=== PATIENT | male | born 1960 | race Caucasian/White ===

== ENCOUNTER → 2016-11-12 | Outpatient (CLI) | payer OTHER ==
[~2016-11-12] MED LIST: ANDRODERM; AZIT250T81 PO; BENECAR; CYCL5TAB11 PO; HYDR-3754 PO; LORA10CA PO; METH4TAB27 PO; NAPR550T PO; OLME40TA3 PO; OMEP20CA12 PO; RIZA10TA23 PO; TERA5CAP3 PO; TERB250T10 PO; TESTOSTERONE; TRIA80CR3 TOP; prilosec
[2016-11-12 11:09] VITALS: BP 119/81
--- NOTE | 2016-11-12 11:09 | Urgent Care T Sheet Gen (E) ---
Intake General Temperature (Fahrenheit): 97.5 Pulse: 91 Blood Pressure Systolic: 119 Blood Pressure Diastolic: 81 Respirations: 18 SPO2: 98 Description of Symptoms Patient presents with a rash x 2 days. Patient states it was first noticed as a red, blistering, burning and itching rash between the toes of both feet. Thought is was athlete's foot so started OTC Lotrimin Ultra. No improvement. Yesterday he noticed the same sensation between his fingers. Then a red itchy rash started on both forearms. Rash isn't noticed anywhere else. No one else in the home has the same thing. No new soaps or detergents. No recent travel. Hasn't been outside to be exposed to poison karen. 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 History of Present Illness Allergies: Coded Allergies: No Known Allergies (Verified Allergy, Unknown, 10/06/13) Home Meds Active Scripts Triamcinolone Acetonide (Kenalog 0.1% Cream)80 Gm Cream..g.1 Gm TOP TID #1 TUBE Apply topically to affected area TID until rash is gone Prov:PAUL VELASQUEZ 11/12/16 Terbinafine HCl 250 Mg Iqonik313 Mg PO DAILY #14 TAB Prov:PAUL VELASQUEZ 11/12/16 Azithromycin (Zithromax Z-Jackson)6 Tab/Pkt [id number] Mg PO SEE INSTRUCTIONS #6 TAB Ref 0 Day One: Take 2 tablets by mouth Days Two-Five: Take 1 tablet by mouth Prov:KO SILVER MD 10/06/13 Naproxen Sodium (Anaprox DS)550 Mg Tmxhcb630 Mg PO Q8H #15 Prov:KO SILVER MD 10/06/13 Reported Medications Loratadine (Claritin)10 Mg Pwoecti31 Mg PO DAILY 10/06/13 Rizatriptan Benzoate (Maxalt)10 Mg Oeylni15 Mg PO PRN PRN MIGRAINE 10/06/13 Terazosin HCl 5 Mg Capsule5 Mg PO DAILY 10/06/13 Cyclobenzaprine Hcl (Flexeril)5 Mg Tablet5 Mg PO PRN PRN PAIN 10/06/13 Omeprazole 20 Mg Capsule.dr20 Mg PO DAILY 10/06/13 Olmesartan Medoxomil (Benicar)40 Mg Ojgwjq49 Mg PO DAILY 10/06/13 [anderoderm] No Conflict Check4 Mg DAILY 08/23/12 [prilosec] No Conflict Check 07/02/12 [benecar] No Conflict Check40 Daily 07/02/12 Respiratory Constitutional Symptoms: No syptoms reported EENTM: No symptoms reported Respiratory: No symptoms reported Cardiovascular: No symptoms reported Skin: Rash All Other Systems Reviewed Remaining Systems: All other systems reviewed with negative findings Past Exsuful-Txkbnz-Hdnsyr Hx Surgeries/Hospitalizations Hospitalization/Surgery Hx: Degenerative disc disease. Vasectomy and a reversal Myocarditis 1999. Respiratory Respiratory History: None Comment: hx of pneumonia Cardiovascular Cardiovascular History: Hypertension Comment: myocarditis 2000 Neuro/Muscular Neuro/Muscular History: Back Problems Reproductive System Sexually Transmitted Diseases: No Genitouinary Comment: HX of kidney stones Gastrointestinal GI/Endocrine History: Heartburn Diabetes Diabetes: No HEENT Impaired Vision: None Hearing Impaired: None Cancer History of Cancer?: No Cancer type: none Psychosocial Behavior Disorders: None Physical Exam Physical Exam General Appearance: WD/WN No apparent distress Skin Exam: Rash (examination of the feet reveals red, moist skin between all toes. nothing else is noted on the feet, plantar or dorsal aspect. skin is slightly swollen between the toes. examination of the hands reveals slight rash between the fingers. examination of the forearm reveals a red, maculopapular rash in all planes. rash is blanchable. not oozing or moist. is also seen along the antecubital fossae) Departure Urgent Care Impression Impression: Primary Impression: Rash Departure Disposition: 01 HOME OR SELF-CARE Condition: Stable Referrals: JUAN CHAWLA MD (PCP) Additional Instructions: The patient's rash has a very non specific look. The area between his toes looks more like tinea pedis however the rash on his arms looks more like dermatitis, possibly due to allergy to some sort of wood working product. Since I'm not 100% sure on the etiology, I opted to treat both. I have started him on Terbinafine for possible tinea pedis. I have also prescribed Triamcinolone ointment for the rash on his arm. Hoping one of the two meds will alleviate his symptoms. F/U with PCP if no better Reassured patient is isn't shingles or anything concerning like that (rash is on both sides of body) Patient understands DC instructions. All questions were answered. Scripts Triamcinolone Acetonide (Kenalog 0.1% Cream)80 Gm Cream..g.1 Gm TOP TID #1 TUBE Apply topically to affected area TID until rash is gone Prov:PAUL VELASQUEZ 11/12/16 Terbinafine HCl 250 Mg Kjrqjh675 Mg PO DAILY #14 TAB Prov:PAUL VELASQUEZ 11/12/16 End of report . PAUL VELASQUEZ November 12, 2016 09:37
== END ==
LOC: MHUC 09:13
PROVIDERS: ATTEND Physician Assistant
DX: R21 Rash and other nonspecific skin eruption (principal)
CPT/HCPCS: 99213